=== PATIENT | male | born 1965 | race Two or more races ===

== ENCOUNTER 2023-04-06 11:13 | Emergency (ER) | payer MEDICAID, OTHER ==
[~2023-04-06] VITALS: Ht 177.8 cm; Wt 100.0 kg
[2023-04-06 11:56] LABS: Red Cell Distribution Width 16.2 % (11.8-14.3)
[2023-04-06 11:58] LABS: Hematocrit 37.1 % (41.0-53.0); Hemoglobin 12.1 g/dL (13.5-17.5); Mean Corpuscular Hemoglobin 41.1 pg (28.0-32.0); Mean Corpuscular Hgb Conc. 32.7 g/dL (32.0-36.0); Mean Corpuscular Volume 125.7 fL (80.0-100.0); Red Blood Cells 2.95 10^6/uL (4.5-5.90)
[2023-04-06 12:17] LABS: Alanine Aminotransferase 40 U/L (7-40); Albumin 2.5 g/dL (3.2-4.8); Alkaline Phosphatase 101 U/L (46-116); Anion Gap 21 (5-15); Aspartate Aminotransferase 172 U/L (13-40); BUN/Creatinine Ratio 7.5 (10.0-20.0); Blood Urea Nitrogen 6 mg/dL (9-23); Calcium 8.8 mg/dL (8.5-10.1); Carbon Dioxide 24 mmol/L (20-30); Chloride 97 mmol/L (98-107); Glucose 198 mg/dL (74-106); Potassium 3.5 mmol/L (3.5-5.1); Sodium 142 mmol/L (136-145); Total Protein 4.7 g/dL (5.7-8.2)
[2023-04-06 12:44] LABS: Band Neutrophils % (manual) 0; Basophils % (manual) 0 (0.0-2.0); Blast Cells 0; Eosinophils % (manual) 0 (0-7); Metamyelocytes % 0; Promyelocytes % 0
[2023-04-06 14:11] LABS: Lymphocytes % (manual) 62 (10.0-50.0); Monocytes % (manual) 3 (0-12); Myelocytes % 2; Reactive Lymphocytes 3
[2023-04-06 14:12] LABS: Platelet Estimate Decreased
== END 2023-04-06 11:22 ==
LOC: EDBD 11:13 → ER 11:13
DX: I46.9 Cardiac arrest, cause unspecified (principal)
CPT/HCPCS: 36415; 80053; 80320; 83605; 85007; 85027; 87040; 87077; 87186; 92950